=== PATIENT | male | born 1955 | race Caucasian/White ===

== ENCOUNTER 2016-09-14 12:14 | Emergency (ER) | payer MEDICAID ==
[2016-09-14 12:38] LABS: % IMMATURE GRANULYOCYTES 0.4 % (0.0-1.1); ABSOLUTE IMMATURE GRANULOCYTES 0.06 10^3/uL (0.00-0.10); ADD DIFF? NO; ADD MORPH? NO; ADD SCAN? NO; ATYPICAL LYMPHOCYTE FLAG 10 (0-99); FRAGMENT RBC FLAG 0 (0-99); HEMATOCRIT 46.5 % (40.0-51.0); HEMOGLOBIN 16.2 g/dL (13.7-17.5); LEFT SHIFT FLG 0 (0-99); LIPEMIA HEMOLYSIS FLAG 90 (0-99); MEAN CELL HEMOGLOBIN CONCENTR. 34.8 g/dL (32.4-36.7); MEAN CELL VOLUME 89.1 fL (81.5-99.8); PLATELET CLUMPS FLAG 50 (0-99); PLATELET COUNT 394 10^3/uL (150-400); RED BLOOD CELL COUNT 5.22 10^6/uL (4.40-6.38); RED CELL DISTRIBUTION WIDTH 12.8 % (11.5-15.2)
[2016-09-14 12:46] VITALS: RESP 20; TEMP 99.1
[2016-09-14 12:52] LABS: ANION GAP 19 mEq/L (8-16); CALCIUM 10.3 mg/dL (8.5-10.4); CARBON DIOXIDE 25 mEq/l (22-31); CHLORIDE 100 mEq/L (97-110); CREATININE 0.7 mg/dL (0.7-1.3); GLOMERULAR FILTRATION RATE > 60; GLUCOSE 266 mg/dL (70-100); POTASSIUM 4.3 mEq/L (3.5-5.2); SODIUM 144 mEq/L (134-144)
--- NOTE | 2016-09-14 13:14 | EDPHY ---
H & P Stated Complaint: hyperglycemic Time Seen by Provider: 09/14/16 12:19 HPI/ROS: CHIEF COMPLAINT: Chronic abdominal pain, elevated blood sugar HISTORY OF PRESENT ILLNESS: The patient presents to the ED complaining of chronic abdominal pain and elevated blood sugar. The patient reports he has had a 10 year history of chronic pancreatitis not secondary to alcohol use. The patient reports he has been on insulin for the past 5 years. The patient reports that he has been unhappy with the primary care he is currently receiving. The patient typically receives his care outside of [facility]. The patient's denies alcohol consumption. The patient denies fever, cough or congestion. The patient reports he is using his insulin however sporadically. The patient had been on metformin prior to that. REVIEW OF SYSTEMS: A comprehensive 10 point review of systems is otherwise negative aside from elements mentioned in the history of present illness. Source: Patient Exam Limitations: No limitations - Personal History Current Tetanus Diphtheria and Acellular Pertussis (TDAP): Unsure - Medical/Surgical History Hx Asthma: No Hx Chronic Respiratory Disease: No Hx Diabetes: Yes Hx Cardiac Disease: No Hx Renal Disease: No Hx Cirrhosis: No Hx Alcoholism: No Hx HIV/AIDS: No Hx Splenectomy or Spleen Trauma: No - Family History Significant Family History: No pertinent family hx - Social History Smoking Status: Former smoker - Physical Exam Exam: General Appearance: Thin male, no acute distress Eyes: Pupils equal and round no pallor or injection ENT, Mouth: Mucous membranes moist Respiratory: There are no retractions, lungs are clear to auscultation Cardiovascular: Regular rate and rhythm Gastrointestinal: Minimal epigastric tenderness Neurological: A&O, normal motor function, normal sensory exam, normal cranial nerves Skin: Warm and dry, no rashes Musculoskeletal: Neck is supple nontender Extremities: symmetrical, full range of motion Constitutional: Initial Vital Signs Temperature (C) 37.3 C 09/14/16 12:35 Heart Rate 127 H 09/14/16 12:35 Respiratory Rate 20 09/14/16 12:35 Blood Pressure 137/105 H 09/14/16 12:35 O2 Sat (%) 98 09/14/16 12:35 O2 Delivery Mode Room Air Allergies/Adverse Reactions: No Known Drug Allergies Allergy (Verified 09/14/16 12:46) Medical Decision Making ED Course/Re-evaluation: The patient presents to the ED for issues surrounding chronic abdominal pain reported mild hyperglycemia. The patient's abdominal examination is benign. While he does have a history of chronic pancreatitis he has no serologic evidence of that today. The patient does have mild hyperglycemia without evidence of diabetic ketoacidosis. The patient's venous pH is 7.49. The remainder of the patient's laboratory studies are unremarkable. The patient has been unhappy with a primary care he has received today. I have told the patient I am happy to refer him to our local primary care provider clinic who would be happy to see the patient in follow-up. At this point time I do not feel that he requires acute imaging of his abdomen. The patient has been instructed to return to the ED for markedly worsening pain, fever, vomiting or other concerns. Differential Diagnosis: Differential diagnosis considered includes acute pancreatitis, chronic pancreatitis, diabetic ketoacidosis, metabolic abnormality, dehydration - Data Points Laboratory Results: Laboratory Results 09/14/16 12:15 09/14/16 12:15 09/14/16 09/14/16 09/14/16 13:17 12:15 12:15 WBC RBC Hgb POC Hgb Hct POC Hct MCV MCH MCHC RDW Plt Count MPV Neut % (Auto) Lymph % (Auto) [place] % (Auto) Eos % (Auto) Baso % (Auto) Nucleat RBC Rel Count Absolute Neuts (auto) Absolute Lymphs (auto) Absolute Monos (auto) Absolute Eos (auto) Absolute Basos (auto) Absolute Nucleated RBC Immature Gran % Immature Gran # VBG pH 7.49 H (7.31-7.42) POC Sodium Sodium 144 mEq/L mEq/L (134-144) POC Potassium Potassium 4.3 mEq/L mEq/L (3.5-5.2) POC Chloride Chloride 100 mEq/L mEq/L (97-110) Carbon Dioxide 25 mEq/l mEq/l (22-31) Anion Gap 19 mEq/L H mEq/L (8-16) POC BUN BUN 11 mg/dL mg/dL (7-23) Creatinine 0.7 mg/dL mg/dL (0.7-1.3) POC Creatinine Estimated GFR > 60 Glucose 266 mg/dL H mg/dL (70-100) POC Glucose Calcium 10.3 mg/dL mg/dL (8.5-10.4) Lipase 76.0 IU/L IU/L (23-300) 09/14/16 09/14/16 12:15 12:14 WBC 14.51 10^3/uL H 10^3/uL (3.80-9.50) RBC 5.22 10^6/uL 10^6/uL (4.40-6.38) Hgb 16.2 g/dL g/dL (13.7-17.5) POC Hgb 17.7 gm/dL H gm/dL (14.5-17.3) Hct 46.5 % % (40.0-51.0) POC Hct 52 % H % (42.8-50.6) MCV 89.1 fL fL (81.5-99.8) MCH 31.0 pg pg (27.9-34.1) MCHC 34.8 g/dL g/dL (32.4-36.7) RDW 12.8 % % (11.5-15.2) Plt Count 394 10^3/uL 10^3/uL (150-400) MPV 10.0 fL fL (8.7-11.7) Neut % (Auto) 87.7 % H % (39.3-74.2) Lymph % (Auto) 7.4 % L % (15.0-45.0) [place] % (Auto) 4.3 % L % (4.5-13.0) Eos % (Auto) 0.0 % L % (0.6-7.6) Baso % (Auto) 0.2 % L % (0.3-1.7) Nucleat RBC Rel Count 0.0 % % (0.0-0.2) Absolute Neuts (auto) 12.73 10^3/uL H 10^3/uL (1.70-6.50) Absolute Lymphs (auto) 1.07 10^3/uL 10^3/uL (1.00-3.00) Absolute Monos (auto) 0.62 10^3/uL 10^3/uL (0.30-0.80) Absolute Eos (auto) 0.00 10^3/uL L 10^3/uL (0.03-0.40) Absolute Basos (auto) 0.03 10^3/uL 10^3/uL (0.02-0.10) Absolute Nucleated RBC 0.00 10^3/uL 10^3/uL (0-0.01) Immature Gran % 0.4 % % (0.0-1.1) Immature Gran # 0.06 10^3/uL 10^3/uL (0.00-0.10) VBG pH POC Sodium 142 mEq/L mEq/L (134-144) Sodium POC Potassium 3.6 mEq/L mEq/L (3.3-5.0) Potassium POC Chloride 100 mEq/L mEq/L (96-108) Chloride Carbon Dioxide Anion Gap POC BUN 10 mg/dL mg/dL (7-23) BUN Creatinine POC Creatinine 0.7 mg/dL L mg/dL (0.8-1.5) Estimated GFR Glucose POC Glucose 265 mg/dL H mg/dL (70-100) Calcium Lipase Point of Care Test Results: 09/14/16 12:14 POC Sodium 142 POC Potassium 3.6 POC Chloride 100 POC BUN 10 POC Creatinine 0.7 L POC Glucose 265 H Departure - Departure Disposition: Home, Routine, Self-Care Clinical Impression: Chronic abdominal pain, Hyperglycemia Condition: Good Instructions: Acute Abdominal Pain (ED), Diabetic Hyperglycemia (ED) Additional Instructions: 1. Please continue using your insulin as directed by your primary care provider. Please schedule a follow-up appointment with them for recheck in the next week. 2. You have been referred to our local clinic who would also be happy to see you in follow-up. Referrals: [facility],. [Clinic] - As per Instructions
[2016-09-14 14:43] VITALS: BP 132/10; PULSE 130; O2SAT 97
== END 2016-09-14 14:43 | disposition home or self-care (01) ==
LOC: EDUNIT#
DX: R10.13 Epigastric pain (principal); G89.29 Other chronic pain; E11.65 Type 2 diabetes mellitus with hyperglycemia; Z87.891 Personal history of nicotine dependence
CPT/HCPCS: 82947-QW